=== PATIENT | male | born 1985 | race Caucasian/White ===

== ENCOUNTER 2024-01-14 21:48 | Emergency (ER) | payer SELFPAY ==
[~2024-01-14] VITALS: Ht 167.6 cm; Wt 84.0 kg
[2024-01-14 22:05] VITALS: BP 140/98; PULSE 106; RESP 18; TEMP 98.6; O2SAT 97
[2024-01-14] MEDS ORDERED: POLY15DR31 LEFTEYE (23:21)
[2024-01-14] MEDS ORDERED: P20 MT (23:21)
[2024-01-14] MEDS ORDERED: ACYC200C31 MT (23:21)
== END 2024-01-15 01:14 | disposition home or self-care (01) ==
LOC: ER 21:48
DX: G51.0 Bell's palsy (principal); E11.9 Type 2 diabetes mellitus without complications
CPT/HCPCS: 99283